=== PATIENT | female | born 1940 | race Caucasian/White ===

== ENCOUNTER 2018-06-12 05:52 | Day surgery (SDC) | payer OTHER ==
[~2018-06-12] VITALS: Ht 157.5 cm; Wt 54.5 kg
[~2018-06-12 05:52] MED LIST: ACET-66 PO; AMIT25TA9 PO; ASPI81 PO; ATEN25TA PO; CHOL50004 PO; CILO2.5OS OD; DICL2100G TP; GABA-531 PO; KETOROLAC TROMETHAMINE 0.5% 5 ML OPHTHALMIC SOLUTION ONE; LORA0.5T2 PO; MOXIFLOXACIN HCL 0.5% 3 ML OPHTHALMIC SOLUTION ONE; OMEP20 PO; OS500 PO; PHENYLEPHRINE HCL 2.5% 2 ML OPHTHALMIC SOLUTION ONE; QUET50XR PO; RINGERS SOLUTION,LACTATED 500 ML IV ONE; SIMV-261 PO; TROPICAMIDE 1% 2 ML OPHTHALMIC SOLUTION ONE
[2018-06-12] MEDS: PHENYLEPHRINE HCL 2.5% 2 ML OPHTHALMIC SOLUTION OD SCH ×3 (06:29→06:49)
[2018-06-12] MEDS: TROPICAMIDE 1% 2 ML OPHTHALMIC SOLUTION OD SCH ×3 (06:29→06:49)
[2018-06-12] MEDS: MOXIFLOXACIN HCL 0.5% 3 ML OPHTHALMIC SOLUTION OD SCH ×3 (06:29→06:49)
[2018-06-12] MEDS: KETOROLAC TROMETHAMINE 0.5% 5 ML OPHTHALMIC SOLUTION OD SCH ×3 (06:29→06:49)
[2018-06-12] MEDS ORDERED: RINGERS SOLUTION,LACTATED 500 ML IV ONE (06:30)
[2018-06-12] MEDS ORDERED: MIDAZOLAM HCL 2 MG/2 ML VIAL IVP ONE (12:00)
[2018-06-12] MEDS ORDERED: FentaNYL CITRATE-PF 100 MCG/2 ML VIAL IVP ONE (12:00)
== END 2018-06-12 09:05 | disposition home or self-care (01) ==
LOC: SURGERY 05:52
PROVIDERS: ATTEND Ophthalmology
DX: H25.11 Age-related nuclear cataract, right eye (principal); D64.9 Anemia, unspecified; I10 Essential (primary) hypertension; F03.90 Unspecified dementia, unspecified severity, without behavioral disturbance, psychotic disturbance, mood disturbance, and anxiety; F32.9 Major depressive disorder, single episode, unspecified; F41.8 Other specified anxiety disorders; M19.90 Unspecified osteoarthritis, unspecified site; E78.00 Pure hypercholesterolemia, unspecified; H91.8X3 Other specified hearing loss, bilateral; K21.9 Gastro-esophageal reflux disease without esophagitis; M81.0 Age-related osteoporosis without current pathological fracture; E55.9 Vitamin D deficiency, unspecified; Z86.19 Personal history of other infectious and parasitic diseases; Z86.73 Personal history of transient ischemic attack (TIA), and cerebral infarction without residual deficits; Z91.81 History of falling; Z79.2 Long term (current) use of antibiotics; Z79.1 Long term (current) use of non-steroidal anti-inflammatories (NSAID); Z85.828 Personal history of other malignant neoplasm of skin; Z98.82 Breast implant status; Z90.49 Acquired absence of other specified parts of digestive tract; Z90.710 Acquired absence of both cervix and uterus; Z90.89 Acquired absence of other organs; Z79.891 Long term (current) use of opiate analgesic; Z79.82 Long term (current) use of aspirin; Z79.899 Other long term (current) drug therapy; Z88.8 Allergy status to other drugs, medicaments and biological substances; Z98.890 Other specified postprocedural states
CPT/HCPCS: 66984; C1780; J2250; J3010; J7120